=== PATIENT | female | born 1995 | race African-American/Black ===

== ENCOUNTER 2017-05-23 08:06 | Emergency (ER) | payer OTHER ==
[~2017-05-23] VITALS: Ht 172.7 cm; Wt 60.3 kg
[2017-05-23 08:28] VITALS: BP 108/67
[2017-05-23] MEDS ORDERED: DEPO-PROVE150 MG/11 IM (08:32)
== END 2017-05-23 08:55 | disposition home or self-care (01) ==
LOC: ER 08:06
DX: J32.9 Chronic sinusitis, unspecified (principal); Z88.1 Allergy status to other antibiotic agents

== ENCOUNTER 2017-09-02 08:08 | Emergency (ER) | payer OTHER ==
[~2017-09-02] VITALS: Ht 170.2 cm; Wt 59.0 kg
[~2017-09-02 08:08] MED LIST: DEPO-PROVE150 MG/11 IM
[2017-09-02 08:10] VITALS: BP 112/72
[2017-09-02 08:38] LABS: URINE BILIRUBIN NEGATIVE (Negative); URINE BLOOD TRACE (Negative); URINE COLOR YELLOW; URINE GLUCOSE-RANDOM* NEGATIVE (Negative); URINE KETONES NEGATIVE (Negative); URINE LEUKOCYTES-REFLEX NEGATIVE (Negative); URINE PROTEIN (DIPSTICK) NEGATIVE (Negative); URINE UROBILINOGEN 0.2 E.U./dl (0.2-1.0)
== END 2017-09-02 09:01 | disposition home or self-care (01) ==
LOC: ER 08:08
PROVIDERS: Emergency Medicine
DX: N92.6 Irregular menstruation, unspecified (principal); J06.9 Acute upper respiratory infection, unspecified; Z88.2 Allergy status to sulfonamides; Z88.8 Allergy status to other drugs, medicaments and biological substances

== ENCOUNTER 2018-04-25 23:26 | Emergency (ER) | payer OTHER ==
[~2018-04-25] VITALS: Ht 170.2 cm; Wt 61.2 kg
[~2018-04-25 23:26] MED LIST changes: +IBUPROFEN 600600 M1 PO
[2018-04-25 23:40] LABS: URINE BILIRUBIN NEGATIVE (Negative); URINE BLOOD 3+ (Negative); URINE CLARITY SL CLOUDY; URINE COLOR YELLOW; URINE GLUCOSE-RANDOM* NEGATIVE (Negative); URINE KETONES NEGATIVE (Negative); URINE NITRITE-REFLEX NEGATIVE (Negative); URINE PROTEIN (DIPSTICK) 1+ (Negative)
[2018-04-25 23:42] VITALS: BP 124/70
[2018-04-25 23:42] LABS: URINE LEUKOCYTES-REFLEX 1+ (Negative)
[2018-04-25] MEDS ORDERED: NOHOMEMEDICATIONS (23:48)
[2018-04-26] MEDS ORDERED: PYRIDIUM100 M1 PO (00:07)
[2018-04-26] MEDS ORDERED: CIPROFLOXACIN500 M1 PO (00:07)
[2018-04-26 00:09] LABS: SQUAMOUS 4-10 Moderate /LPF (0-3)
[2018-04-26 00:11] LABS: BACTERIA-REFLEX 1-9 Few /HPF (None Seen); CASTS None Seen /LPF (None Seen); CRYSTALS None Seen /LPF (None Seen)
== END 2018-04-26 00:18 | disposition home or self-care (01) ==
LOC: ER 23:26
PROVIDERS: Emergency Medicine
DX: N39.0 Urinary tract infection, site not specified (principal); Z88.2 Allergy status to sulfonamides; Z88.8 Allergy status to other drugs, medicaments and biological substances